=== PATIENT | female | born 1995 | race Caucasian/White ===

== ENCOUNTER 2018-07-06 00:11 | Inpatient (IN) | payer BC ==
[~2018-07-06] VITALS: Ht 160 cm; Wt 58.0 kg
[~2018-07-06 00:11] MED LIST: BENADRYL ALLERG25 MG PO; CEPHALEXIN500 MG PO; LEVAQUIN750 MG PO; METHYLPREDNISOLO4 MG PO; PRE20 PO; PREDNISONE20 MG PO
[2018-07-06 00:35] VITALS: Ht 160 cm; Wt 58.0 kg
[2018-07-06 01:26] LABS: BASOPHIL % 0.4 % (0-2); PLATELET COUNT 324 x10^3mcL (130-400)
[2018-07-06 01:28] LABS: RED CELL DISTRIBUTION WIDTH 16.4 % (11.5-14.5)
[2018-07-06 01:31] LABS: CALCIUM 8.7 mg/dL (8.5-10.1); CARBON DIOXIDE 27.6 mmol/L (21-32); CHLORIDE SERUM 101 mmol/L (98-107); CREATININE SERUM 0.7 mg/dL (0.6-1.0); GFR1 > 60 mL/min; GLUCOSE SERUM 103 mg/dL (74-106); POTASSIUM SERUM 3.7 mmol/L (3.5-5.1); SODIUM SERUM 139 mmol/L (136-145)
[2018-07-06 01:36] LABS: ALKALINE PHOSPHATASE 72 U/L (46-116); ALT/SGPT 20 U/L (14-59); AST/SGOT 15 U/L (15-37); BILIRUBIN TOTAL 0.26 mg/dL (0.20-1.00); LIPASE 94 IU/L (73-393); TOTAL PROTEIN, SERUM 7.4 g/dL (6.4-8.2)
[2018-07-06 03:05] VITALS: BP 96/63
[2018-07-06 04:14] LABS: microscopic required? YES; urine erythrocyte 3+ (NEGATIVE)
[2018-07-06 05:59] VITALS: BP 96/63
[2018-07-06 08:45] VITALS: BP 102/59
[2018-07-06] MEDS ORDERED: LEVAQUIN500 M1 PO (16:43)
[2018-07-06] MEDS ORDERED: FLO4 PO (16:44)
[2018-07-06] MEDS ORDERED: APAP500 MG PO (16:45)
[2018-07-06 16:54] VITALS: BP 102/59
== END 2018-07-06 17:47 | disposition home or self-care (01) | DRG 690 ==
LOC: ED 00:11 → MU 01:50
PROVIDERS: Emergency Medicine
DX: N13.6 Pyonephrosis (principal); R31.9 Hematuria, unspecified
CPT/HCPCS: J0696; J1885; J1956; J2405; J7030